=== PATIENT | male | born 1955 | race Caucasian/White ===

== ENCOUNTER 2024-05-11 11:27 | Day surgery (SDC) | payer OTHER ==
[2024-05-10 14:05] VITALS: BMI 29.1
[2024-05-11] MEDS ORDERED: Bupivacaine HCl 0.5%/Epinephrine 1:200,000/PF 30 ml Vial ONE (11:51)
[2024-05-11] MEDS ORDERED: Ketorolac Tromethamine 30 MG (1 mL) VIAL ONE (11:58)
[2024-05-11] MEDS ORDERED: Acetaminophen 500 MG TAB ONE (11:58)
[2024-05-11] MEDS ORDERED: Lidocaine 1% PF 5 ML VIAL ONE (13:40)
[2024-05-11] MEDS ORDERED: PROPOFOL 20 ML ONE ×2 (13:40→14:03)
[2024-05-11] MEDS ORDERED: fentaNYL 50 mcg/mL 1 mL Vial ONE ×2 (13:40→13:56)
[2024-05-11] MEDS ORDERED: Dexamethasone 4 mg/ml Vial ONE ×2 (13:40→14:17)
[2024-05-11] MEDS ORDERED: Ondansetron PF 4 MG/2 ML Vial ONE (13:40)
[2024-05-11] MEDS ORDERED: CEFAZOLIN 2 GM VIAL ONE (13:48)
[2024-05-11] MEDS ORDERED: Bupivacaine/Epinephrine 0.25% 30 ML VIAL ONE (14:00)
== END 2024-05-11 15:45 | disposition home or self-care (01) ==
LOC: CSHSDC 11:27
PROVIDERS: ATTEND Specialist
PROC: 0JH63WZ Insertion of Totally Implantable Vascular Access Device into Chest Subcutaneous Tissue and Fascia, Percutaneous Approach (ICD-10-PCS; principal; 2024-05-11)
DX: C80.1 Malignant (primary) neoplasm, unspecified (principal); C78.7 Secondary malignant neoplasm of liver and intrahepatic bile duct; I25.10 Atherosclerotic heart disease of native coronary artery without angina pectoris; E78.00 Pure hypercholesterolemia, unspecified; Z88.5 Allergy status to narcotic agent
CPT/HCPCS: 71045; 93005; 93010; C1788; J1100; J1642; J1885; J2405; J2704; J3010

== ENCOUNTER 2025-02-13 13:41 | Outpatient (CLI) | payer OTHER | END 2025-02-13 13:42 | disposition home or self-care (01) | LOC: CSHULT 13:41 | PROVIDERS: ATTEND Internal Medicine | DX: C65.2 Malignant neoplasm of left renal pelvis (principal); I51.7 Cardiomegaly; I51.89 Other ill-defined heart diseases | CPT/HCPCS: 93306 ==

== ENCOUNTER 2025-04-12 15:17 | Outpatient (CLI) | payer OTHER ==
[~2025-04-12 15:17] MED LIST: Iopamidol 370 76% 100 ML VIAL ONE
== END 2025-04-12 15:18 | disposition home or self-care (01) ==
LOC: CSHCT 15:17
PROVIDERS: ATTEND Internal Medicine
DX: C65.2 Malignant neoplasm of left renal pelvis (principal); D50.8 Other iron deficiency anemias; R06.02 Shortness of breath; R00.0 Tachycardia, unspecified; I95.9 Hypotension, unspecified; C78.7 Secondary malignant neoplasm of liver and intrahepatic bile duct; Z90.5 Acquired absence of kidney
CPT/HCPCS: 71275; Q9967